=== PATIENT | male | born 1990 | race Caucasian/White ===

== ENCOUNTER 2020-01-16 17:10 | Emergency (ER) | payer BC, OTHER ==
[~2020-01-16] VITALS: Ht 180.3 cm; Wt 103.0 kg
[2020-01-16 17:33] VITALS: BP 143/78
--- NOTE | 2020-01-16 17:36 | NUR ---
Pt taken to bed 12.
--- NOTE | 2020-01-16 17:40 | NUR ---
29 Y/O M C/C LEFT SHOULDER PAIN X 1 DAY. PER PT PAIN RADIATES TO THE BACK. DENIES TRAUMA. ROM/CMS WNL. PAIN 8/10, PRESSURE, SHARP SENSATION. PT NKA. NO HX. NO SX. NO RX. NO NVD. SIDE RAIL X1.
--- NOTE | 2020-01-16 17:42 | NUR ---
ERMD AT BEDSIDE
--- NOTE | 2020-01-16 17:52 | NUR ---
RAD AT BEDSIDE
[2020-01-16 18:20] LABS: BASOPHILS # (AUTO) 0.1 K/uL (0.00-0.22); BASOPHILS % (AUTO) 0.6 % (0.0-2.0); EOSINOPHILS # (AUTO) 0.1 K/uL (0-0.4); EOSINOPHILS % (AUTO) 0.8 % (0.0-4.0); HEMATOCRIT 41.7 % (36-52); HEMOGLOBIN 13.9 g/dL (12.0-18.0); LYMPHOCYTES # (AUTO) 1.6 K/uL (2.0-11.5); LYMPHOCYTES % (AUTO) 11.2 % (20.5-51.1); MEAN CORPUSCULAR HEMOGLOBIN 29 pg (27-31); MEAN CORPUSCULAR HGB CONC 33 g/dL (33-37); MEAN CORPUSCULAR VOLUME 86.8 fL (80-94); MONOCYTES % (AUTO) 7.1 % (1.7-9.3); NEUTROPHILS # (AUTO) 11.2 K/uL (1.8-7.7); NEUTROPHILS % (AUTO) 80.3 % (42.2-75.2); PLATELET COUNT (AUTO) 267 K/uL (140-450); RED BLOOD CELL COUNT(AUTO) 4.81 MIL/uL (4.20-6.10); RED CELL DISTRIBUTION WIDTH 13.7 % (11.6-13.7)
[2020-01-16] MEDS ORDERED: IBUPROFEN 800 MG TAB PO ONE (18:35)
[2020-01-16 18:40] LABS: ALBUMIN 4.3 g/dL (3.4-5.0); ANION GAP 14.9 (8-16); CARBON DIOXIDE 28.2 mmol/L (21-32); POTASSIUM 4.1 mmol/L (3.5-5.1); TOTAL BILIRUBIN 0.4 mg/dL (0.0-1.0)
[2020-01-16 19:17] VITALS: BP 143/78
--- NOTE | 2020-01-16 19:17 | NUR ---
Patient discharged with v/s stable. Written and verbal after care instructions given and explained. Patient alert, oriented and verbalized understanding of instructions. Ambulatory with steady gait. All questions addressed prior to discharge. ID band removed. Patient advised to follow up with PMD. Rx of COLCRYS,IBUPROFEN given. Patient educated on indication of medication including possible reaction and side effects. Opportunity to ask questions provided and answered.
== END 2020-01-16 19:17 | disposition home or self-care (01) ==
LOC: MED 17:10
DX: I30.9 Acute pericarditis, unspecified (principal); F12.10 Cannabis abuse, uncomplicated
CPT/HCPCS: 36415; 71045; 80053; 83880; 84484; 85025; 85379; 99285; Q0092